=== PATIENT | male | born 1955 | race Caucasian/White ===

== ENCOUNTER 2023-08-30 08:39 | Inpatient (IN) ==
--- NOTE | 2023-08-07 12:11 | PAT Medication Instructions ---
Medication Instructions Date of Service August 07, 2023 Home Medications Medication Instructions Recorded nicotine 14 mg/24 hr daily 1 patch transdermal DAILY #28 ea 06/14/23 transdermal patch nicotine 7 mg/24 hr daily 1 patch transdermal Q24H #28 ea 06/14/23 transdermal patch apixaban 5 mg (74 tabs) tablets in 5 mg PO BID #74 ea 06/29/23 a dose pack (Eliquis) apixaban 5 mg tablet (Eliquis) 5 mg PO BID #60 tabs 06/29/23 ibuprofen 200 mg tablet 400 - 600 mg PO UD PRN Pain nicotine 14 mg/24 hr daily transdermal patch 1 patch transdermal DAILY nicotine 7 mg/24 hr daily transdermal patch 1 patch transdermal Q24H apixaban 5 mg (74 tabs) tablets in a dose pack (Eliquis) 5 mg PO BID apixaban 5 mg tablet (Eliquis) 5 mg PO BID Continue as directed nicotine patch (continue as directed unless told otherwise by prescriber) ASK your surgeon for instructions ibuprofen 200 mg tablet 400 - 600 mg PO UD PRN Pain ASK your prescriber and surgeon apixaban (Eliquis) Other Notes NOTHING TO EAT OR DRINK AFTER MIDNIGHT If you have any questions please call us at [phone] or [phone] or [phone] or [phone]
--- NOTE | 2023-08-09 10:51 | Anesthesiology Consultation ---
Date of Service August 09, 2023 Assessment & Plan (1) Encounter for pre-operative examination: Chart Review Chart Review: Acceptable Risk for Surgery and Patient seen in Pre Admission Testing Teaching & Discussion Pre-Anesthesia Teaching/Discussion Notes: Instructed NPO after midnight before surgery, except medications with 15 cc of water. Medication instructions provided according to the PAT guidelines. History Surgery Operation Date: 08/30/23 09:50 Proposed Procedures p Left Femoral Popliteal Insitu Bypass - Jayden Joy MD Height/Weight Height: 6 ft 2 in Weight: 71 kg Allergies Allergy/AdvReac Type Severity Reaction Status Date / Time No Known Allergies Allergy Verified 08/07/23 11:38 Medications Home Medications Medication Instructions Recorded Confirmed Last Taken ibuprofen 200 mg tablet 400 - 600 mg PO UD PRN Pain 01/07/23 08/07/23 07/21/23 nicotine 14 mg/24 hr daily 1 patch transdermal DAILY #28 ea 06/14/23 08/07/23 Unknown transdermal patch nicotine 7 mg/24 hr daily 1 patch transdermal Q24H #28 ea 06/14/23 08/07/23 Unknown transdermal patch apixaban 5 mg (74 tabs) tablets in 5 mg PO BID #74 ea 06/29/23 08/07/23 07/28/23 05:00 a dose pack (Eliquis) apixaban 5 mg tablet (Eliquis) 5 mg PO BID #60 tabs 06/29/23 08/07/23 07/28/23 05:00 Past Medical History Medical History BPH (benign prostatic hyperplasia) Femoral artery thrombosis, left GERD (gastroesophageal reflux disease) controlled, stable per pt Hx of basal cell carcinoma back of lt leg Smoker 10-20 cigs/day Patient denies h/o stroke, seizures, heart attack, heart failure, DM, HTN, or blood transfusions. Exercise / Class Metabolic Activity II 4-5 Yardwork/Stairs/Walk up hill (denies chest discomfort or shortness of breath with 1 FOS) Past Family History Family History Aunt Breast cancer Mother Diabetes Brother Prostate cancer Denies family history of Ovarian cancer Myocardial infarction Colorectal cancer Hypertension Past Surgical History Surgical History Hx of left inguinal hernia repair ~2011 [facility] Hx of tooth extraction Status post Mohs surgery back of lt leg-BCC Past Anesthesia History No Hx of Anesthesia Complications and No Family Hx of Anesthesia Complications History of PONV No Hx of PONV and No Hx of Motion Sickness Social History Smoking Status: Current every day smoker (-advised) Smoking cigarettes per day: 10-20 Do You Dip or Chew Tobacco: No (quit 30 yrs ago) Hx Alcohol Use: Yes Alcohol type: beer, wine and hard liquor alcohol intake frequency: a few times a month Hx Substance Use: No substance use type: does not use Review of Systems Patient denies chest pain, shortness of breath, dyspnea on exertion, snoring, witnessed apneas, fever, chills, cough, wheezing, or palpitations. Physical Exam Vital Signs Vitals BP 133/80 P 50 TEMP 98.3 SP02 96% on RA RESP 18 Physical Patient resting comfortably in chair in no acute distress, alert and oriented, responding appropriately throughout visit Full cervical extension range of motion without pain TMD 3.5 finger breadths Mallampati Score 2 Dentition: many missing teeth, several broken teeth; denies caps/crowns, implants or bridges Lungs: normal respiratory effort. Good air movement, clear throughout to auscultation, no adventitious breath sounds Cardiac: regular rate and rhythm, no murmurs noted Carotid arteries: negative bruit bilat Lab Results Anesthesia Preop Results Results Anesthesia Widget: WBC 7.55 K/ul (4.8-10.8) 08/09/23 Hgb 16.0 g/dl (14.0-18.0) 08/09/23 Hct 46.9 % (42.0-52.0) 08/09/23 Plt 324 K/uL (130-400) 08/09/23 Na 139 mmol/L (136-145) 08/09/23 K 4.4 mmol/L (3.5-5.1) 08/09/23 Cl 103 mmol/L (98-107) 08/09/23 CO2 29 mmol/L (21-32) 08/09/23 BUN 12 mg/dl (6-23) 08/09/23 Creat 0.89 mg/dl (0.6-1.4) 08/09/23 Glucose Level 76 mg/dl (70-99(Fasting)) 08/09/23 PT 10.1 Seconds (9.0-12.0) 08/09/23 PTT 31 Seconds (21-31) 08/09/23 INR 0.9 (0.9-1.1) 08/09/23 TSH 2.362 uIu/ml (0.300-4.500) 06/14/23 Blood Type O Positive 08/09/23 Antibody Screen NEGATIVE 08/09/23 Testing Electrocardiogram Date: 08/09/23 Sinus bradycardia, rate 48 bpm Old septal infarct cited on or before 08/31/2009 Chest X-Ray Date: 08/09/23 No acute cardiopulmonary findings. Other Testing Venous doppler 06/29/23 1. There is no sonographic evidence of deep venous thrombosis identified in the left lower extremity. 2. There is complete thrombosis throughout the superficial femoral artery and proximal popliteal artery. Arterial flow is reconstituted in the distal popliteal artery.
--- NOTE | 2023-08-30 07:33 | History & Physical Report ---
Date of Service August 30, 2023 Assessment & Plan (1) Femoral artery thrombosis, left: Plan: Patient for a left fem pop bypass. I have discussed the risks options and benefits of the procedure with the patient. The patient understands the risks options and benefits and agrees to the procedure. History of Present Illness Chief Complaint: Left superficial femoral artery occlusion Primary Care Provider: Allen Carias DO Mr. Urena is a middle-age male presents with left leg pain and peripheral arterial disease. Patient states that he does not seek out regular medical care typically, but that he developed left leg discomfort and difficulty ambulating after sitting for some time out by a bonfire on the first day of hunting season in May. He states that he was able to walk to the site without significant problems, but that he was unable to walk back out from the site there is significant pain in his left leg. He states he sought medical attention at a local family practice office, and was sent for an ultrasound of his leg, and then was started on Eliquis due to the findings. At this point he states that he can probably walk 50 yards if he pushes past his left leg fatigue, but it is very difficult. He finds that after 1 or 2 Miranda in the grocery store he needs to stop and rest for few minutes and then is able to ambulate again. He has noticed that his left foot has become reddened since this event, and that he has developed two small black spots on his foot and ankle about a month ago which are not healing. He states that when he lies down in bed at night he has severe pain in his left foot and toes, and that he is unable to have a blanket or sheet lay on them. He states that if he hangs his leg off the side of the bed or sleeps in the recliner chair with his legs down, he is able to sleep. His right leg has some fatigue in the calf muscles but to a much lesser degree. He does admit some occasional numbness of the left leg, and states that it feels very weak when he stands on it. He denies any chest pain palpitation shortness of breath headache, fever, abdominal pain, nausea, vomiting. He denies any family history of abdominal aortic aneurysm or other arterial problems. Allergies Allergy/AdvReac Type Severity Reaction Status Date / Time No Known Allergies Allergy Verified 08/07/23 11:38 Home Medications Medication Instructions Recorded Confirmed Type ibuprofen 200 mg tablet 400 - 600 mg PO UD PRN Pain 01/07/23 08/07/23 History nicotine 14 mg/24 hr daily 1 patch transdermal DAILY #28 ea 06/14/23 08/07/23 Rx transdermal patch nicotine 7 mg/24 hr daily 1 patch transdermal Q24H #28 ea 06/14/23 08/07/23 Rx transdermal patch apixaban 5 mg (74 tabs) tablets in 5 mg PO BID #74 ea 06/29/23 08/07/23 Rx a dose pack (Eliquis) apixaban 5 mg tablet (Eliquis) 5 mg PO BID #60 tabs 06/29/23 08/07/23 Rx Past Med/Surg History Medical History GERD (gastroesophageal reflux disease) controlled, stable per pt Smoker 10-20 cigs/day Femoral artery thrombosis, left Hx of basal cell carcinoma back of lt leg BPH (benign prostatic hyperplasia) Surgical History Hx of tooth extraction Status post Mohs surgery back of lt leg-BCC Hx of left inguinal hernia repair ~2011 [facility] Family History Aunt Breast cancer Mother Diabetes Brother Prostate cancer Denies family history of Ovarian cancer Myocardial infarction Colorectal cancer Hypertension Social History Smoking Status: Current every day smoker (-advised) Tobacco Type: Cigarettes Cigarettes Per Day: 10-20; Second Hand Exposure: Yes (hx); Do You Dip or Chew Tobacco: No (quit 30 yrs ago); Tobacco Cessation Education Requested by Patient: No Hx Alcohol Use: Yes Alcohol type: beer, wine and hard liquor Alcohol Intake Frequency: Monthly or Less Hx Substance Use: No Preferred Language: Malian Communication Ability: Effective Lead Installer Required: No Beliefs That Will Affect Care: None marital status: Single Current Living Situation: Alone Current Living Situation Comment: an dog current occupational status: retired Other Information That Helps Us Care for You: No Feels Safe at Home: Yes Safety Concerns: Feels Safe At This Time Diet: regular caffeine: Yes Dental Care, Regularly: Yes Physical Activity Frequency: 3-4 Times per Week Seatbelt Use: always Sunscreen Use: Yes Assistive Devices: Denture - Upper Review of Systems All systems reviewed & are unremarkable except as noted in HPI & below Physical Exam Physical Exam: Constitutional: In general patient is a healthy-appearing well-nourished well- developed middle-aged male in no distress. He is alert and oriented without any focal deficits. His head is normocephalic and atraumatic. His trachea is midline. His heart is regular. His carotids do not demonstrate a bruit. His lungs are decreased lightly but clear throughout. His abdomen is soft nontender with normoactive bowel sounds in all 4 quadrants. I am able to palpate his aorta, which feels to be around 2.5 to 3 cm. Femoral pulses are +3 bilaterally. Left lower extremity distal pulses are nonpalpable. Right lower extremity distal pulses are nonpalpable. His left foot is ruborous with mild edema. There is a punctate lesion to the dorsal aspect of the fifth metatarsal. There is also a punctate lesion on his medial malleolus. The remainder of his toes do have capillary refill, although this is slightly delayed at 6 seconds.
[~2023-08-30 08:39] MED LIST: DEXAMETHASONE SOD INJ 4 MG/ML VIAL ONE; GLYCOPYRROLATE 0.2 MG/ML VIAL ONE; LIDOCAINE 2% 2 ML VIAL/AMP(20MG/ML) INFIL ONE; MIDAZOLAM HCL 1 MG/ML 2ML VIAL ONE; ONDANSETRON INJ 2 MG/ML 2 ML VIAL ONE; PROPOFOL IV EMULSION 10 MG/ML 20 ML VIAL IV ONE; ROCURONIUM BROMIDE 10 MG/ML 5 ML VIAL IV ONE; fentaNYL citrate PF 100 MCG/2 ML VIAL ONE
[2023-08-30] MEDS: LACTATED RINGER'S 1,000 ML BAG IV SCH (09:25)
[2023-08-30] MEDS ORDERED: ATROPINE SULFATE 0.1 MG/ML 10ML SYR IV PRN (09:32)
[2023-08-30] MEDS ORDERED: ONDANSETRON INJ 2 MG/ML 2 ML VIAL IV PRN (09:32)
[2023-08-30] MEDS ORDERED: ePHEDrine sulfate 50 MG/ML AMP IV PRN (09:32)
--- NOTE | 2023-08-30 09:50 | History & Physical Bridge Note ---
Date of Service August 30, 2023 History & Physical Bridge Note I have examined the patient, reviewed the History & Physical and in the interval since the performance of the History & Physical I have noted the following changes of clinical significance: no changes noted
[2023-08-30] MEDS: CEFAZOLIN 2,000 MG/15 ML SYR IV SCH (10:08)
[2023-08-30] MEDS ORDERED: ROCURONIUM BROMIDE 10 MG/ML 5 ML VIAL IV ONE (10:57)
[2023-08-30] MEDS ORDERED: SUGAMMADEX SODIUM 200 MG/2 ML VIAL IV ONE (10:57)
[2023-08-30] MEDS ORDERED: HEPARIN SOD (PORCINE) 1000 UNIT/ML ONE ×2 (11:22→12:10)
[2023-08-30] MEDS ORDERED: ePHEDrine sulfate 50 MG/5 ML SYR ONE (12:01)
[2023-08-30] MEDS: THROMBIN FOR SOLN 20000 UNIT KIT ONE (12:33)
[2023-08-30] MEDS: LIDOCAINE 1% LOCAL 20 ML VIAL ONE (12:33)
[2023-08-30] MEDS: GELATIN SPONGE SZ 100 ONE (12:33)
[2023-08-30] MEDS: BUPIVACAINE/EPINEPHRINE 0.5% MPF 1:200,000 30 ML VIAL ONE (12:33)
[2023-08-30] MEDS ORDERED: PHENYLEPHRINE 100MCG/ML 10ML SYR IV ONE (12:46)
[2023-08-30] MEDS ORDERED: PROTAMINE SULFATE 10 MG/ML 5 ML VIAL IV ONE (12:58)
[2023-08-30] MEDS: PAPAVERINE HCL INJ 30 MG/ML 2 ML VIAL ONE (13:32)
[2023-08-30] MEDS: VISIPAQUE IV ONE (13:33)
[2023-08-30] MEDS: ceFAZolin 330 MG/ML 1 GM VIAL ONE (13:33)
[2023-08-30] MEDS: HEPARIN (PORCINE) 1000 UNIT/ML 10 ML (CATH LAB USE ONLY) ONE (13:33)
--- NOTE | 2023-08-30 13:44 | Procedure Note ---
Angiogram Post Procedure Fluoroscopy Time (minutes): 0.2 Radiation (mGy): 7 Post Operative Report Pre & Post Diagnosis Operation Date: 08/30/23 10:20 Pre-Op Diagnosis: Left Superficial Femoarl Artery Occlusion Post-Op Diagnosis: Left Superficial Femoarl Artery Occlusion I identified the patient and participated in the time-out.: Yes Procedure Operation Date: 08/30/23 10:20 Actual Procedures p Left Femoral to Popliteal In-Situ Bypass(Left) - Jayden Joy MD Surgeon Jayden Joy MD Thread Machine Operator Catherine,PAC Estimated Blood Loss 150 Findings Consistent with Post-Op Diagnosis Specimens none Anesthesia Type General Complications none Disposition Accompanied Patient To Recovery: No Disposition: Recovery Room Indications This is a 67-year-old gentleman who was found to have a left superficial femoral artery occlusion with severe claudication left lower extremity. It could not be treated endovascularly. Bypass was recommended. I have discussed the risks options and benefits of the procedure with the patient. The patient understands the risks options and benefits and agrees to the procedure. Description of Procedure The patient was taken the op room and placed supine position. After general anesthesia was accomplished the left leg was prepped draped in sterile manner. A timeout was performed and the patient was identified. A longitudinal groin incision was then made. This carried down to where the common femoral artery was identified. This was isolated and easily went down to beyond the bifurcation. The saphenous vein was seen at that level it was isolated from the saphenofemoral junction down to the bottom of the incision. A longitudinal incision was made in the lower leg. The saphenous vein was identified at that level. It was very usable at that level. Incision was carried down to the mid calf exposing the saphenous vein the incision was then deepened until the popliteal artery was identified and isolated. It was soft with good caliber and usable for bypass outflow vessel. Patient was heparinized at that time. At that point the common superficial and profundofemoral arteries were clamped. Longitudinal arteriotomy was started on the common femoral artery. The saphenous vein was then transected after clamping the saphenofemoral junction. The stump was oversewn with 5-0 Prolene. The first valve was seen and resected. An end to side anastomosis accomplished and the saphenous vein and the common femoral artery using a running 5-0 Prolene suture in usual vascular fashion. After completing the closure the clamps were removed. There is good flow through the graft down to the first valve which was competent essentially was then ligated distally and divided. Using the valve cutting device the valves were cut. Excellent flow was seen through the saphenous vein at that point. Saphenous vein was very clamped at the proximal anastomosis. The popliteal artery was then clamped proximal distally. Longitudinal arteriotomy was then made. Lumen was patent. The saphenous vein was then trimmed and beveled the appropriate length and an end to side anastomosis was accomplished using a 6-0 Prolene suture in usual vascular fashion. Prior to completing the closure backbleeding forward bleeding was allowed to occur. Final few sutures were placed and securely tied. Clamps and removed excellent flow was seen. Good Doppler signals were heard in the foot. The proximal portion of the vein graft was then punctured with a micropuncture sheath. A arteriogram was then done of the lower extremity which showed 1 significant sidebranch. Incision was made over the sidebranch. This was carried down to where the bypass was identified and the sidebranch was then ligated. The sheath was removed and the puncture site repaired a single sailboats 0 Prolene suture and hemostasis was then obtained of the wounds. Wounds were then closed with running 2-0 Vicryl suture for the femoral sheath and a 3-0 Vicryl subcutaneous layers. [place] were used for the skin edges. Sterile dressings were applied. The patient left the operation room in satisfactory condition and tolerated the procedure well. All needle and sponge counts were correct at the end of the procedure. Melissa Brooks Pac assisted due to lack of resident availability and was necessary for positioning, draping, retraction, wound closure deep layers, subcutaneous tissue, and skin closure and was necessary for assisting with the case. I attest to the content of the Intraoperative Record and any orders documented therein. Any exceptions are noted below.
--- NOTE | 2023-08-30 13:46 | Post Operative Brief Note ---
Immediate Post Op Note v1 Date of Surgery August 30, 2023 Pre & Post Diagnosis Operation Date: 08/30/23 10:20 Pre-Op Diagnosis: Left Superficial Femoarl Artery Occlusion Post-Op Diagnosis: Left Superficial Femoarl Artery Occlusion I identified the patient and participated in the time-out.: Yes Procedure Operation Date: 08/30/23 10:20 Actual Procedures p Left Femoral to Popliteal In-Situ Bypass(Left), left superficial femoral endarterectomy with bovine patch- Jayden Joy MD Surgeon Jayden Joy MD International Representative Catherine,PAC Estimated Blood Loss 150 Findings Consistent with Post-Op Diagnosis Anesthesia Type General Complications none Disposition Accompanied Patient To Recovery: No Disposition: Recovery Room
[2023-08-30] MEDS: fentaNYL citrate PF 100 MCG/2 ML VIAL IV PRN (14:12)
--- NOTE | 2023-08-30 14:57 | Anesthesiology Progress Note ---
Date of Service August 30, 2023 Anesthesia Post Procedure Vital Signs Vital Signs: Temp Pulse Pulse Resp BP BP Pulse Ox 08/30/23 14:50 50 L 14 104/57 L 96 08/30/23 14:35 36.4 C L 52 L 14 103/43 L 104/62 95 08/30/23 14:25 48 L 12 106/45 L 112/62 96 08/30/23 14:15 52 L 18 105/45 L 109/62 97 08/30/23 14:05 79 17 115/60 98 08/30/23 13:55 36.2 C L 79 17 115/60 98 08/30/23 09:01 36.4 C L 50 L 20 139/76 94 O2 Del Method O2 Flow Rate 08/30/23 14:50 Nasal Cannula 2 08/30/23 14:35 Nasal Cannula 2 08/30/23 14:25 Oxymask 4 08/30/23 14:15 Oxymask 4 08/30/23 14:05 Oxymask 8 08/30/23 13:55 Oxymask 8 08/30/23 09:01 Room Air Pain Intensity Left Lower Leg: Pain Intensity: 5 Transfer of Care Handoff Completed per policy Notes Mental Status: alert / awake / arousable Patient Amnestic to Procedure: Yes Nausea / Vomiting: adequately controlled Pain: adequately controlled Airway Patency, RR, SpO2: stable & adequate BP & HR: stable & adequate Hydration State: stable & adequate Anesthetic Complications: no major complications apparent
[2023-08-30] MEDS ORDERED: MoRPHine SULFATE 4 MG/ML 1 ML CARP\\VIAL IV PRN (16:00)
[2023-08-30 16:47] LABS: Basophils # (auto) 0.03 K/uL (0.00-0.20); Basophils % (auto) 0.3 %; Eosinophils # (auto) 0.01 K/uL (0.00-0.50); Eosinophils % (auto) 0.1 %; Hematocrit (blood only) 43.2 % (42.0-52.0); Hemoglobin 13.8 g/dl (14.0-18.0); Immature Granulocytes # (auto) 0.13 K/uL (0.01-0.20); Immature Granulocytes % (auto) 1.1 %; Lymphocytes # (auto) 0.96 K/uL (1.20-3.40); Lymphocytes % (auto) 8.3 %; Mean Corpuscular Hemoglobin 29.4 pg (25.0-34.0); Mean Corpuscular Hgb Conc 31.9 g/dL (32.0-36.0); Mean Corpuscular Volume 91.9 fL (80.0-100.0); Monocytes # (auto) 0.08 K/uL (0.11-0.59); Monocytes % (auto) 0.7 %; Neutrophils # (auto) 10.29 K/uL (1.40-6.50); Neutrophils % (auto) 89.5 %; Platelet Count 230 K/uL (130-400); RDW Coefficient of Variation 13.5 % (11.5-14.5); RDW Standard Deviation 46.1 fL (36.4-46.3)
[2023-08-30] MEDS: ceFAZolin 2000MG 2,000 MG/15 ML SYR IV SCH (16:49)
[2023-08-30] MEDS: NICOTINE 14 MG/24 HR PATCH TD SCH (16:49)
[2023-08-30] MEDS: oxyCODONE/ACETAMINOPHEN 5mg/325mg TAB PO PRN (17:00)
[2023-08-31 04:10] LABS: Basophils # (auto) 0.02 K/uL (0.00-0.20); Basophils % (auto) 0.2 %; Eosinophils # (auto) 0.01 K/uL (0.00-0.50); Eosinophils % (auto) 0.1 %; Hematocrit (blood only) 39.4 % (42.0-52.0); Hemoglobin 12.8 g/dl (14.0-18.0); Immature Granulocytes # (auto) 0.06 K/uL (0.01-0.20); Immature Granulocytes % (auto) 0.5 %; Lymphocytes # (auto) 1.75 K/uL (1.20-3.40); Lymphocytes % (auto) 14.2 %; Mean Corpuscular Hemoglobin 29.3 pg (25.0-34.0); Mean Corpuscular Hgb Conc 32.5 g/dL (32.0-36.0); Mean Corpuscular Volume 90.2 fL (80.0-100.0); Mean Platelet Volume 9.2 fL (9.4-12.4); Monocytes # (auto) 0.93 K/uL (0.11-0.59); Monocytes % (auto) 7.5 %; Neutrophils # (auto) 9.55 K/uL (1.40-6.50); Neutrophils % (auto) 77.5 %; Platelet Count 235 K/uL (130-400); RDW Coefficient of Variation 13.7 % (11.5-14.5); RDW Standard Deviation 45.1 fL (36.4-46.3); Red Blood Count 4.37 M/uL (4.70-6.10); White Blood Count 12.32 K/ul (4.8-10.8)
[2023-08-31 04:28] LABS: Calcium 8.5 mg/dl (8.6-10.3); Creatinine Clr Calc Pharmacy 96.1 ml/min; Est GFR (African American) 109.6 ml/min; Est GFR (Non-African American) 94.6 ml/min; Potassium 4.2 mmol/L (3.5-5.1)
--- NOTE | 2023-08-31 14:48 | Surgery Progress Note ---
Date of Service August 31, 2023 Assessment & Plan (1) Femoral artery thrombosis, left: Plan: Patient underwent a left Fem pop insitu bypass yesterday. Doing extremely well. will transfer to floor today. Most likely will D/C home tomorrow. Admission and Anticipated Discharge Date Admission Date: August 30, 2023 Subjective Claims pins and needle feeling in foot is gone. Only complaint is incisional pain. Ambulated well today. Physical Exam Constitutional: well developed and well nourished Respiratory: normal respiratory effort; no respiratory distress Cardiovascular: Rate/Rhythm: regular rate and regular rhythm Vessels: posterior tibial pulses present (right palpable) Skin: + incision (lower incisions dry and zamzam n, prevena in place in groin) Psychiatric: Orientation: alert and oriented x 3 Results & Data Vital Signs (Past 12 Hours) Vital Signs Temp Pulse Resp BP Pulse Ox Pulse Ox O2 Del Method 08/31/23 13:14 98 08/31/23 12:13 128/67 08/31/23 12:13 56 L 16 97 Room Air 08/31/23 12:00 58 L 21 96 08/31/23 11:00 50 L 16 97 08/31/23 10:59 47 L 19 98 08/31/23 10:59 117/72 08/31/23 10:33 47 L 17 99 08/31/23 10:33 120/63 08/31/23 10:00 94/58 L 08/31/23 10:00 50 L 13 94 08/31/23 09:00 48 L 12 96 08/31/23 09:00 94/55 L 08/31/23 08:00 Room Air 08/31/23 08:00 49 L 12 93 08/31/23 08:00 102/57 L 08/31/23 07:14 42 L 08/31/23 07:00 109/64 08/31/23 07:00 48 L 16 95 08/31/23 06:45 42 L 14 94 08/31/23 05:00 92/55 L 08/31/23 05:00 43 L 13 93 08/31/23 04:10 36.5 C 08/31/23 04:00 95/61 L 08/31/23 04:00 44 L 18 96 08/31/23 03:00 95/56 L 08/31/23 03:00 46 L 14 93 O2 Flow Rate 08/31/23 13:14 0 08/31/23 12:13 08/31/23 12:13 08/31/23 12:00 08/31/23 11:00 08/31/23 10:59 08/31/23 10:59 08/31/23 10:33 08/31/23 10:33 08/31/23 10:00 08/31/23 10:00 08/31/23 09:00 08/31/23 09:00 08/31/23 08:00 08/31/23 08:00 08/31/23 08:00 08/31/23 07:14 08/31/23 07:00 08/31/23 07:00 08/31/23 06:45 08/31/23 05:00 08/31/23 05:00 08/31/23 04:10 08/31/23 04:00 08/31/23 04:00 08/31/23 03:00 08/31/23 03:00
[2023-08-31] MEDS: APIXABAN 5 MG TABLET PO SCH (19:32)
--- NOTE | 2023-09-01 10:04 | Surgery Progress Note ---
Date of Service September 01, 2023 Assessment & Plan (1) S/P femoral-popliteal bypass surgery: Plan: Pt doing well post op after LLE fem-BK pop in situ bypass. Ambulating well. PLans to remain on the first floor of his home for a week and use walker. Daughter lives next door and will assist. OK for d/c home today. Will need to remain on Eliquis 2.5mg BID and 81mg ASA indefinitely to maintain patentcy of his bypass. Will see in office in 2 weeks for staple removal. (2) Femoral artery thrombosis, left: Plan: see above Admission and Anticipated Discharge Date Admission Date: August 30, 2023 Subjective 67 yo POD #2 after uncomplicated LLE fem-BK pop in situ bypass, seen in f/u today. Pt states incisional pain only. Foot/toe pain completely resolved. Toes with occasional numbness, significantly improved. + flatus. Taking PO well. Ambulating with walker. Has a walker at home for use. Review of Systems Review of Systems: All systems reviewed & are unremarkable except as noted in HPI & below Physical Exam Constitutional: WD/WN, vitals as above cooperative and comfortable; not in distress Respiratory: normal respiratory effort, lungs clear to auscultation Auscultation: + diminished lung sounds Cardiovascular: Rate/Rhythm: regular rate and regular rhythm Vessels: posterior tibial pulses present, dorsalis pedis pulses present and radial pulses present; + abnormal peripheral pulses Extremities: normal capillary refill and + edema (mild LLE) Gastrointestinal (Abdomen): Inspection/Auscultation: abdomen normal to inspection and normal bowel sounds Percussion/Palpation: abdomen soft; abdomen nontender Musculoskeletal: no cyanosis or clubbing, extremities motor strength 5/5 Skin: + incision (LLE incisions C/D/I with sta ples. +mild local tenderness. groin prevena); no erythema Neurologic: moves all extremities and awake; no focal motor deficits and not confused Psychiatric: A+Ox3, euthymic affect Results & Data Vital Signs (Past 12 Hours) Vital Signs Temp Pulse Pulse Resp BP Pulse Ox O2 Del Method 09/01/23 07:47 36.6 C 54 L 15 114/68 95 Room Air 08/31/23 22:00 36.8 C 53 L 18 124/65 99 Room Air
--- NOTE | 2023-09-01 10:05 | Discharge Summary ---
Date of Service September 01, 2023 Admission HPI Per Admitting Provider Mr. Urena is a middle-age male presents with left leg pain and peripheral arterial disease. Patient states that he does not seek out regular medical care typically, but that he developed left leg discomfort and difficulty ambulating after sitting for some time out by a bonfire on the first day of hunting season in May. He states that he was able to walk to the site without significant problems, but that he was unable to walk back out from the site there is significant pain in his left leg. He states he sought medical attention at a local family practice office, and was sent for an ultrasound of his leg, and then was started on Eliquis due to the findings. At this point he states that he can probably walk 50 yards if he pushes past his left leg fatigue, but it is very difficult. He finds that after 1 or 2 Miranda in the grocery store he needs to stop and rest for few minutes and then is able to ambulate again. He has noticed that his left foot has become reddened since this event, and that he has developed two small black spots on his foot and ankle about a month ago which are not healing. He states that when he lies down in bed at night he has severe pain in his left foot and toes, and that he is unable to have a blanket or sheet lay on them. He states that if he hangs his leg off the side of the bed or sleeps in the recliner chair with his legs down, he is able to sleep. His right leg has some fatigue in the calf muscles but to a much lesser degree. He does admit some occasional numbness of the left leg, and states that it feels very weak when he stands on it. He denies any chest pain palpitation shortness of breath headache, fever, abdominal pain, nausea, vomiting. He denies any family history of abdominal aortic aneurysm or other arterial problems. Admission Exam Per Admitting Provider Constitutional: In general patient is a healthy-appearing well-nourished well- developed middle-aged male in no distress. He is alert and oriented without any focal deficits. His head is normocephalic and atraumatic. His trachea is midline. His heart is regular. His carotids do not demonstrate a bruit. His lungs are decreased lightly but clear throughout. His abdomen is soft nontender with normoactive bowel sounds in all 4 quadrants. I am able to palpate his aorta, which feels to be around 2.5 to 3 cm. Femoral pulses are +3 bilaterally. Left lower extremity distal pulses are nonpalpable. Right lower extremity distal pulses are nonpalpable. His left foot is ruborous with mild edema. There is a punctate lesion to the dorsal aspect of the fifth metatarsal. There is also a punctate lesion on his medial malleolus. The remainder of his toes do have capillary refill, although this is slightly delayed at 6 seconds. Principal Diagnosis 1. s/p LLE fem-BK pop in situ bypass 2. LLE SFAO with rest pain Discharge Exam Constitutional WD/WN, vitals as above cooperative and comfortable; not in distress Respiratory normal respiratory effort, lungs clear to auscultation Auscultation: + diminished lung sounds Cardiovascular Rate/Rhythm: regular rate and regular rhythm Vessels: posterior tibial pulses present, dorsalis pedis pulses present and radial pulses present; + abnormal peripheral pulses Extremities: normal capillary refill and + edema (mild LLE) Gastrointestinal (Abdomen) Inspection/Auscultation: abdomen normal to inspection and normal bowel sounds Percussion/Palpation: abdomen soft; abdomen nontender Musculoskeletal no cyanosis or clubbing, extremities motor strength 5/5 Skin + incision (LLE incisions C/D/I with veronica. +mild local tenderness. groin prevena); no erythema Neurologic moves all extremities and awake; no focal motor deficits and not confused Psychiatric A+Ox3, euthymic affect Discharge Data Allergies Allergy/AdvReac Type Severity Reaction Status Date / Time No Known Allergies Allergy Verified 08/30/23 09:06 Procedures Performed Operation Date: 08/30/23 10:20 Actual Procedures p Left Femoral to Popliteal In-Situ Bypass(Left) - Jayden Joy MD Ordered Studies 08/30/23 09:20 Angio leg [EV angio LE LT] Routine Hospital Course (1) S/P femoral-popliteal bypass surgery: Pt doing well post op after LLE fem-BK pop in situ bypass. Ambulating well. PLans to remain on the first floor of his home for a week and use walker. Daughter lives next door and will assist. OK for d/c home today. Will need to remain on Eliquis 2.5mg BID and 81mg ASA indefinitely to maintain patentcy of his bypass. Will see in office in 2 weeks for staple removal. (2) Femoral artery thrombosis, left: see above Total Time Total Time Spent Total Time Spent (In Minutes): 0 Discharge Plan Discharge Items Patient Disposition: Home - Self-Care Reason For Visit: Left Superficial Femoarl Artery Occlusion Discharge Diagnosis: 1. s/p femoral to below knee popliteal artery in situ bypass 2. L SFAO with rest pain Activity: Per Instructions section Non-emergency contact: Primary Care Provider and Surgeon Call non-emergency contact if: you have any medication questions, your pain is not controlled, your pain is concerning for you, you have a fever, your wound has increased redness, your wound has increased drainage and your wound pain has increased Follow-up/Referrals: Allen Carias DO [Primary Care Provider] - (Follow up with your PCP within 2 weeks. ) Jayden Joy MD [Physician] - (Follow up with Dr Joy or Melissa Brooks PA-C, in 2 weeks for staple removal) Diet: Heart Healthy Addtl Attending Provider Instructions: ACTIVITY RECOMMENDATIONS: 1. May shower after the incisional vac is removed. NO soaking in water/bathing for 6 weeks. 2. You have an incisional wound vac on your left groin incision. This is battery powered and will about 7-10 days post op. When the batteries , the entire unit( purple foam, clear plastic, tubing, pump, bag) can be thrown away. If you are unsure, call office at [phone] Joy's nurse. 3. Increase activity as tolerated. SPECIAL CARE INSTRUCTIONS: Call your doctor if: * Temperature above 101 degrees * Pain not relieved by pain medicine ordered * There is increased drainage or redness from any incision * You have any unanswered questions or concerns. Pending Studies at Discharge: No Stand-Alone Forms: [facility], Smoking Cessation Medications and DC Order Prescriptions: New oxycodone-acetaminophen [Percocet] 5-325 mg Tablet 1 - 2 tab PO Q4H PRN (Reason: pain) Qty: 30 0RF Eliquis 2.5 mg tablet 2.5 mg PO BID Qty: 60 11RF aspirin 81 mg capsule 81 mg PO DAILY Qty: 30 11RF Continued nicotine 14 mg/24 hr patch 24 hour 1 patch transdermal DAILY Qty: 28 2RF nicotine 7 mg/24 hr patch 24 hour 1 patch transdermal Q24H Qty: 28 3RF Discontinued Eliquis 5 mg (74 tabs) tablets,dose pack 5 mg PO BID Qty: 74 0RF Patient Comments: 08/07/23-currently on last 4 days of medication and then will stop Eliquis 5 mg tablet 5 mg PO BID Qty: 60 5RF Patient Comments: 08/07/23-currently on last 4 days of medication and then will stop Rx Instructions: start after completing starting pack ibuprofen 200 mg Tablet 400 - 600 mg PO UD PRN (Reason: Pain) Patient Comments: only once in awhile Discharge Orders: Discharge Order (Routine); Ordered 09/01/23 Ordered By: Melissa Brooks Admission Data Admit Date/Time: 08/30/23 09:50 Attending Provider: Jayden Joy Admit Provider: Jayden Joy Primary Care Provider: Allen Carias Other Interventions: Discharge Summary Assessment (RN) Last Done: 09/01/23 10:02
== END 2023-09-01 12:02 | disposition home or self-care (01) | DRG 254 ==
LOC: ASU 08:39 → 1E 09:50 → 3N 08-31 17:31